=== PATIENT | female | born 1980 | race Caucasian/White ===

== ENCOUNTER 2017-06-09 19:24 | Inpatient (IN) ==
[2017-06-09] MEDS ORDERED: IOPAMIDOL 100 ML BOTTLE IJ ONE (19:25)
[2017-06-09] MEDS ORDERED: 0.9 % SODIUM CHLORIDE 1,000 ML IV ONE (19:55)
[2017-06-09] MEDS ORDERED: HYDROmorphone 2 MG TABLET PO ONE ×2 (20:14→22:07)
[2017-06-09 20:45] LABS: Basophils # (Auto) 0.1 K/mcL (0.0-0.3); Basophils % (Auto) 0.9 % (0.0-2.0); Eosinophils # (Auto) 0.2 K/mcL (0.0-0.7); Eosinophils % (Auto) 2.7 % (0.0-7.0); Granulocytes % (Auto) 58.6 % (38.0-78.0); Lymphocytes # (Auto) 2.5 K/mcL (1.5-4.8); Lymphocytes % (Auto) 29.2 % (15.5-49.0); Mean Cell Volume 88.5 fL (80.0-100.0); Mean Corpuscular HGB Conc 34.4 g/dL (31.0-36.0); Mean Corpuscular Hemoglobin 30.4 pg (26.0-34.0); Monocytes # (Auto) 0.7 K/mcL (0.1-0.9); Monocytes % (Auto) 8.6 % (1.0-12.0); Platelet Count 252 K/mcL (140-440); RBC 4.48 M/mcL (4.00-5.20); Red Cell Distribution Width 12.6 % (11.5-14.5)
[2017-06-09 21:07] LABS: ALT/SGPT 13 U/l (0-40); Albumin 4.1 gm/dL (3.2-5.2); Albumin/Globulin Ratio 1.4 (1.0-2.3); Alkaline Phosphatase 54 U/L (39-117); Blood Urea Nitrogen 12 mg/dl (6-20)
[2017-06-09] MEDS ORDERED: CYCLOBENZAPRINE 10 MG TABLET PO ONE (22:07)
[2017-06-09] MEDS: HYDROmorphone 2 MG/ML SYRINGE IV PRN (22:50)
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
[2017-06-10] MEDS ORDERED: ENOXAPARIN 80 MG/0.8 ML SYRINGE SQ ONE (00:11)
[2017-06-10] MEDS: HYDROmorphone 2 MG/ML SYRINGE IV PRN (00:51)
[2017-06-10] MEDS ORDERED: DOCUSATE SODIUM 100 MG CAPSULE PO PRN (01:39)
[2017-06-10] MEDS ORDERED: MAGNESIUM HYDROXIDE 30 ML ORAL.SUSP PO PRN (01:39)
[2017-06-10] MEDS ORDERED: NALOXONE HCL 0.4 MG/ML VIAL IV PRN (01:39)
[2017-06-10] MEDS ORDERED: ONDANSETRON 4 MG/2 ML VIAL IV PRN (01:39)
[2017-06-10] MEDS ORDERED: IBUPROFEN 600 MG TABLET PO PRN (01:39)
[2017-06-10] MEDS ORDERED: ACETAMINOPHEN 325 MG TABLET PO PRN (01:39)
[2017-06-10] MEDS ORDERED: POTASSIUM CHLORIDE 20 MEQ/10 ML VIAL IV ONE (02:04)
[2017-06-10] MEDS: ALBUTEROL SULFATE 2.5 MG/3 ML NEBULIZER NEB SCH ×3 (02:05→13:30)
[2017-06-10] MEDS: POTASSIUM CHLORIDE 20 MEQ in 0.45 % SODIUM CHLORIDE 1,000 ML IV SCH ×2 (02:05→14:13)
[2017-06-10] MEDS ORDERED: ALBUTEROL SULFATE 2.5 MG/3 ML NEBULIZER ONE (02:05)
[2017-06-10] MEDS ORDERED: RIZATRIPTAN BENZOATE 5 MG PO PRN (02:16)
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
[2017-06-10 05:30] LABS: Basophils # (Auto) 0 K/mcL (0.0-0.3); Basophils % (Auto) 0.4 % (0.0-2.0); Eosinophils # (Auto) 0.2 K/mcL (0.0-0.7); Eosinophils % (Auto) 2.1 % (0.0-7.0); Granulocytes % (Auto) 55.7 % (38.0-78.0); Lymphocytes # (Auto) 2.6 K/mcL (1.5-4.8); Mean Cell Volume 91.4 fL (80.0-100.0); Mean Corpuscular HGB Conc 34.1 g/dL (31.0-36.0); Mean Corpuscular Hemoglobin 31.2 pg (26.0-34.0); Monocytes # (Auto) 0.6 K/mcL (0.1-0.9); Monocytes % (Auto) 7.8 % (1.0-12.0); Platelet Count 200 K/mcL (140-440); RBC 3.81 M/mcL (4.00-5.20); Red Cell Distribution Width 13.4 % (11.5-14.5)
[2017-06-10 05:59] LABS: ALT/SGPT 10 U/l (0-40); Albumin 3.2 gm/dL (3.2-5.2); Albumin/Globulin Ratio 1.2 (1.0-2.3); Alkaline Phosphatase 44 U/L (39-117); Bilirubin,Direct < 0.2 mg/dL (0.0-0.3); Blood Urea Nitrogen 10 mg/dl (6-20); Gamma Glutamyl Transpeptidase 11 U/L (5-36)
[2017-06-10] MEDS ORDERED: HYDROmorphone 2 MG/ML SYRINGE ONE (06:09)
[2017-06-10] MEDS: BACLOFEN 10 MG TABLET PO SCH ×2 (08:17→14:28)
[2017-06-10] MEDS: ALPRAZolam 0.25 MG TABLET PO PRN ×2 (08:30→14:24)
[2017-06-10] MEDS ORDERED: ENOXAPARIN 80 MG/0.8 ML SYRINGE SQ SCH ×2 (09:00)
[2017-06-10] MEDS ORDERED: FAMOTIDINE 20 MG TABLET PO SCH (09:00)
[2017-06-10] MEDS ORDERED: CITALOPRAM 20 MG TABLET PO SCH (09:00)
--- NOTE | 2017-06-10 09:14 | XRay Report ---
HISTORY: Reason for Exam:shortness of breath FINDINGS: The lungs are clear. The heart, mediastinum, lori and pleura are normal. IMPRESSION: Normal chest. Interpreted and Authenticated by: Mauri Vincent 06/10/17
[2017-06-10] MEDS ORDERED: IBUPROFEN 600 MG TABLET PO SCH (09:30)
[2017-06-10] MEDS: ACETAMINOPHEN W/CODEINE #3 1 TABLET PO PRN ×2 (09:32→14:25)
--- NOTE | 2017-06-10 09:33 | Cat Scan Report ---
CLINICAL INFORMATION: Reason for Exam:positive d -dimer, shortness of breath COMPARISON: None TECHNIQUE: Axial images obtained through the chest. Intravenous contrast administration was administered, and scanning was performed during pulmonary arterial phase. Sagittally and coronally reformatted images were obtained. MIP reformatted images. FINDINGS: The pulmonary artery to the lateral basal segment of the left lower lobe is occluded with thrombus. The remainder of the pulmonary arteries are normal. There is partial consolidation of the posterior and lateral basal segments of the left lower lobe. This is probably atelectasis and less likely an involving infarct. There is also a very small left-sided pleural effusion. No right-sided effusion or pericardial effusion are present. Mild dependent atelectasis is present posteriorly in the right lower lobe. Right lung is otherwise clear. The heart is normal in size and contour. There is no pericardial effusion. The aorta is normal in caliber and there is no aneurysm, dissection or atherosclerotic disease. A 1.4 cm accessory accessory spleen is present on the posterior border of the spleen is within upper limits of normal in size. IMPRESSION: Pulmonary embolus in the lateral basal segment of the left lower lobe. Small infiltrate in the posterior and lateral basal segments of the left lower lobe with superimposed small pleural effusion Interpreted and Authenticated by: Mauri Vincent 06/10/17
--- NOTE | 2017-06-10 09:57 | XRay Report ---
HISTORY: Reason for Exam:f/u PE, infiltrate FINDINGS: Small infiltrate is present posteriorly and medially in the left lower lobe with a superimposed very small subpulmonic pleural effusion. This is unchanged from the CT done on 06/09/17. The remainder of the lung [place] are clear. The heart size and pulmonary vasculature are normal in caliber. IMPRESSION: Stable mild atelectasis posteriorly in the left lower lobe Interpreted and Authenticated by: Mauri Vincent 06/10/17
[2017-06-10 11:07] LABS: Ionized Calcium 1.15 mmol/L (1.16-1.32)
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
== END 2017-06-10 16:05 | disposition home or self-care (01) | DRG 176 ==
LOC: ED 19:24 → ICU 06-10 01:24
PROVIDERS: ADMIT Internal Medicine; ATTEND Internal Medicine